=== PATIENT | female | born 1975 | race American Indian/Alaskan Native ===

== ENCOUNTER 2016-03-02 08:07 | Emergency (ER) | payer MEDICARE ==
[2016-03-02 08:47] VITALS: BP 191/111
[2016-03-02 09:16] LABS: Basophils % (Auto) 0.7 % (0.0-1.8); Eosinophils % (Auto) 0.7 % (0.0-4.3); Hematocrit 34.5 % (30.3-42.9); Hemoglobin 10.9 gm/dl (10.1-14.3); Mean Corpuscular HGB Conc 32 % (30-34); Mean Corpuscular Hemoglobin 29 pg (28-32); Mean Corpuscular Volume 90 fl (79-97); Platelet Count 294 K/mm3 (140-440); Red Blood Count 3.83 M/mm3 (3.65-5.03); Red Cell Distribution Width 15.4 % (13.2-15.2); White Blood Count 6.4 K/mm3 (4.5-11.0)
[2016-03-02 09:45] LABS: Alanine Aminotransferase 16 units/L (7-56); Albumin 3.7 g/dL (3.9-5); Albumin/Globulin Ratio 1.1 %; Alkaline Phosphatase 70 units/L (35-129); Anion Gap 19 mmol/L; BUN/Creatinine Ratio 6.66; Blood Urea Nitrogen 6 mg/dL (7-17); Calcium 8.9 mg/dL (8.4-10.2); Carbon Dioxide 23 mmol/L (22-30); Chloride 103.3 mmol/L (98-107); Glucose 104 mg/dL (65-100); Lipase 39 units/L (13-60); Potassium 3.9 mmol/L (3.6-5.0); Sodium 141 mmol/L (137-145); Total Protein 7.1 g/dL (6.3-8.2)
[2016-03-02] MEDS ORDERED: ZOFRAN ODT PO ONE (10:58)
--- NOTE | 2016-03-04 21:14 | ED Elopement Review ---
ED Pt Elopement review - Results review Lab results: Laboratory Tests 03/02/16 03/02/16 03/02/16 09:06 09:06 09:06 WBC 6.4 RBC 3.83 Hgb 10.9 Hct 34.5 MCV 90 MCH 29 MCHC 32 RDW 15.4 H Plt Count 294 Lymph % (Auto) 20.0 [place] % (Auto) 5.6 Eos % (Auto) 0.7 Baso % (Auto) 0.7 Lymph # 1.3 [place] # 0.4 Eos # 0.0 Baso # 0.0 Seg Neutrophils % 73.0 H Seg Neutrophils # 4.7 Sodium 141 Potassium 3.9 Chloride 103.3 Carbon Dioxide 23 Anion Gap 19 BUN 6 L Creatinine 0.9 Estimated GFR > 60 BUN/Creatinine Ratio 6.66 Glucose 104 H Calcium 8.9 Total Bilirubin 1.0 AST 23 ALT 16 Alkaline Phosphatase 70 Troponin T < 0.010 Total Protein 7.1 Albumin 3.7 L Albumin/Globulin Ratio 1.1 Lipase 39 HCG, Qual Negative 03/02/16 11:34 WBC RBC Hgb Hct MCV MCH MCHC RDW Plt Count Lymph % (Auto) [place] % (Auto) Eos % (Auto) Baso % (Auto) Lymph # [place] # Eos # Baso # Seg Neutrophils % Seg Neutrophils # Sodium Potassium Chloride Carbon Dioxide Anion Gap BUN Creatinine Estimated GFR BUN/Creatinine Ratio Glucose Calcium Total Bilirubin AST ALT Alkaline Phosphatase Troponin T < 0.010 Total Protein Albumin Albumin/Globulin Ratio Lipase HCG, Qual - Call Back decision Pt Call Back Decision: No action required
== END 2016-03-02 13:10 | disposition left against medical advice (07) ==
LOC: ED 08:07
DX: R07.9 Chest pain, unspecified (principal); R51 Headache; R10.9 Unspecified abdominal pain; Z53.21 Procedure and treatment not carried out due to patient leaving prior to being seen by health care provider
CPT/HCPCS: 36415; 80053; 83690; 84484; 84703; 85025; 93005; 93010